=== PATIENT | female | born 1955 | race Caucasian/White ===

== ENCOUNTER → 2021-06-18 | Outpatient (CLI) | payer MEDICARE, OTHER ==
[~2021-06-18] MED LIST: NORCO 5-325 TA1 EACH PO; PERCOCET 5/325 T1 EA PO
== END ==
LOC: MAMO 09:00
DX: M81.0 Age-related osteoporosis without current pathological fracture (principal); M85.89 Other specified disorders of bone density and structure, multiple sites
CPT/HCPCS: 77080